=== PATIENT | female | born 1960 | race Hispanic/Latino ===

== ENCOUNTER 2018-04-04 07:27 | Day surgery (SDC) | payer MEDICARE ==
[2018-04-03 14:10] VITALS: BP 116/70
[2018-04-03 14:34] LABS: BASOPHILS % (AUTO) 0.5 % (0.0-5.0); EOSINOPHILS % (AUTO) 1.6 % (0.0-8.0); HEMATOCRIT 37.1 % (36-48); LYMPHOCYTES % (AUTO) 25.7 % (21.0-51.0); MEAN CORPUSCULAR HEMOGLOBIN 27.2 pg (27.0-33.0); MEAN CORPUSCULAR HGB CONC 32.2 g/dL (32.0-36.0); MEAN CORPUSCULAR VOLUME 84.5 fL (79-99); MONOCYTES % (AUTO) 7.3 % (3.0-13.0); NEUTROPHILS % (AUTO) 64.9 % (40.0-77.0); PLATELET COUNT (AUTO) 268 K/uL (130-400); RED BLOOD CELL COUNT(AUTO) 4.39 MIL/uL (4.00-5.50); RED CELL DISTRIBUTION WIDTH 15.8 % (11.0-15.5); WHITE BLOOD COUNT (AUTO) 10.8 K/uL (4.8-10.8)
[2018-04-03 14:37] LABS: CREATININE 0.9 mg/dL (0.5-1.5); POTASSIUM 3.9 mmol/L (3.5-5.1)
[~2018-04-04] VITALS: Ht 149.9 cm; Wt 88.1 kg
[2018-04-04] VITALS (19 sets, daily range): BP systolic 119–159; BP diastolic 59–89
[~2018-04-04 07:27] MED LIST: AMLO10TA6 PO; ASPI-555 PO; CALC-190 PO; CITA10TA7 PO; CYCL30DR OU; EXEN2VIA SQ; EZET10TA26 PO; FURO20TA4 PO; GABA-529 PO; HYDR-4068 PO; HYDR200T82 PO; LIDOCAINE TP; LOSA100T20 PO; MAGN400T40 PO; NAPR-1023 PO; OMEP40CA37 PO; SPIR50TA5 PO; ZONI25CA3 PO
[2018-04-04] MEDS ORDERED: EPINEPHRINE 1 MG/ML 30ML VIAL IJ ONE (07:53)
[2018-04-04] MEDS ORDERED: SODIUM CHLORIDE 0.9% 1000ML 1,000 ML IV ONE (09:24)
[2018-04-04] MEDS ORDERED: CLINDAMYCIN 900 MG/D5% WATER 50 ML IV ONE (09:24)
[2018-04-04] MEDS ORDERED: SUCCINYLCHOLINE CHLORIDE 20 MG/ML 10 ML VIAL ONE (09:44)
[2018-04-04] MEDS ORDERED: LIDOCAINE PF 2% 5ML ABBOJECT ONE (09:44)
[2018-04-04] MEDS ORDERED: PROPOFOL 10 MG/ML 20ML VIAL IV ONE (09:45)
[2018-04-04] MEDS ORDERED: ROCURONIUM 10MG/1ML SYR 10 MG/ML ML ONE ×2 (09:45→11:02)
[2018-04-04] MEDS ORDERED: ROPIVACAINE 0.5% 5MG/ML 30ML IJ ONE (09:47)
[2018-04-04] MEDS ORDERED: FENTANYL CITRATE PF 50 MCG/1 ML 2ML VIAL ONE (10:12)
[2018-04-04] MEDS ORDERED: PHENYLEPHRINE HCL 10 MG/ML 1ML VIAL IV ONE (10:59)
[2018-04-04] MEDS ORDERED: NEOSTIGMINE 5MG/5ML SYR IV ONE (11:59)
[2018-04-04] MEDS ORDERED: GLYCOPYRROLATE 1 MG/5 ML SYRINGE ONE (11:59)
[2018-04-04] MEDS ORDERED: HYDR-4453 PO (12:29)
[2018-04-04] MEDS ORDERED: CLIN300C3 PO (12:29)
[2018-04-04] MEDS ORDERED: ONDANSETRON HCL 4 MG/2 ML VIAL ONE ×2 (12:39→13:01)
[2018-04-04] MEDS ORDERED: METOCLOPRAMIDE 10 MG/2 ML VIAL ONE (14:12)
== END 2018-04-04 14:55 | disposition home or self-care (01) ==
LOC: DAH 07:27
PROVIDERS: ATTEND Orthopaedic Surgery
DX: S46.011A Strain of muscle(s) and tendon(s) of the rotator cuff of right shoulder, initial encounter (principal); M19.011 Primary osteoarthritis, right shoulder; M75.41 Impingement syndrome of right shoulder; M06.9 Rheumatoid arthritis, unspecified; I10 Essential (primary) hypertension; E78.5 Hyperlipidemia, unspecified; E11.9 Type 2 diabetes mellitus without complications; K21.9 Gastro-esophageal reflux disease without esophagitis; I27.20 Pulmonary hypertension, unspecified; Z90.49 Acquired absence of other specified parts of digestive tract; Z90.710 Acquired absence of both cervix and uterus; Z98.890 Other specified postprocedural states; Z82.49 Family history of ischemic heart disease and other diseases of the circulatory system; Z87.891 Personal history of nicotine dependence; X58.XXXA Exposure to other specified factors, initial encounter; Y93.89 Activity, other specified; Y92.89 Other specified places as the place of occurrence of the external cause; Y99.8 Other external cause status; Z79.899 Other long term (current) drug therapy; Z88.8 Allergy status to other drugs, medicaments and biological substances; Z88.0 Allergy status to penicillin
CPT/HCPCS: 29824; 29826; 29827; 36415; 80048; 82948 ×2; 85025; A4649 ×5; A4930 ×2; A6204; C1713; G0168; J0171; J0330; J2001; J2370; J2405 ×2; J2704; J2710; J2765; J2795; J3010; J3490 ×2; J7030 ×2

== ENCOUNTER 2018-09-28 13:27 | Emergency (ER) | payer MEDICARE ==
[~2018-09-28 13:27] MED LIST changes: -AMLO10TA6 PO; +AMLO10TA7 PO; +CLIN300C3 PO; +HYDR-4453 PO; -LOSA100T20 PO; +LOSA100T58 PO
[2018-09-28 14:37] LABS: APPEARANCE,URINE Clear (CLEAR); BILIRUBIN,URINE Negative (NEGATIVE); COLOR,URINE Yellow (YELLOW); GLUCOSE, URINE (UA) Negative (NEGATIVE); KETONES,URINE Negative (NEGATIVE); LEUKOCYTE ESTERASE ,URINE Negative (NEGATIVE); NITRATE,URINE Negative (NEGATIVE); OCCULT BLOOD,URINE Negative (NEGATIVE); PH,URINE 6.5 (5.0-8.0); PROTEIN,URINE Negative (NEGATIVE); UROBILINOGEN,URINE 0.2 mg/dL (0.2-1.0)
[2018-09-28] MEDS ORDERED: CYCLOBENZAPRINE HCL 10 MG TABLET ONE (15:34)
[2018-09-28] MEDS ORDERED: TRAMADOL HCL 50 MG TABLET ONE (15:34)
== END 2018-09-28 15:44 | disposition home or self-care (01) ==
LOC: EDH 13:27
DX: M54.5 Low back pain (principal); M54.6 Pain in thoracic spine; R11.0 Nausea; I10 Essential (primary) hypertension; E78.5 Hyperlipidemia, unspecified; M81.0 Age-related osteoporosis without current pathological fracture; M19.90 Unspecified osteoarthritis, unspecified site; E11.9 Type 2 diabetes mellitus without complications; F32.9 Major depressive disorder, single episode, unspecified; Z88.0 Allergy status to penicillin; Z88.8 Allergy status to other drugs, medicaments and biological substances; Z79.84 Long term (current) use of oral hypoglycemic drugs; Z72.0 Tobacco use
CPT/HCPCS: 74176; 81003

== ENCOUNTER → 2019-03-26 | Outpatient (CLI) | payer MEDICARE ==
[~2019-03-26] MED LIST changes: -EZET10TA26 PO; +EZET10TA48 PO
== END | disposition home or self-care (01) ==
LOC: RAH 12:54
PROVIDERS: ATTEND Family Medicine
DX: Z12.31 Encounter for screening mammogram for malignant neoplasm of breast (principal)
CPT/HCPCS: 77067

== ENCOUNTER → 2020-07-27 | Outpatient (CLI) | payer MEDICARE ==
[~2020-07-27] MED LIST changes: +AMLO-258 PO; -AMLO10TA7 PO; -ASPI-555 PO; +ASPI-556 PO; +OMEP40CA13 PO; -OMEP40CA37 PO; +ZONI25CA14 PO; -ZONI25CA3 PO
== END | disposition home or self-care (01) ==
LOC: OIH 12:09
PROVIDERS: ATTEND Family Medicine
DX: M43.22 Fusion of spine, cervical region (principal); M54.2 Cervicalgia; M25.512 Pain in left shoulder; M47.812 Spondylosis without myelopathy or radiculopathy, cervical region; R91.8 Other nonspecific abnormal finding of lung field; M19.012 Primary osteoarthritis, left shoulder
CPT/HCPCS: 72040; 73030

== ENCOUNTER 2021-07-02 09:51 | Emergency (ER) | payer MEDICARE ==
[~2021-07-02] VITALS: Ht 149.9 cm; Wt 96.6 kg
[~2021-07-02 09:51] MED LIST changes: -CITA10TA7 PO; +CITA10TA89 PO; -OMEP40CA13 PO; +OMEP40CA21 PO
[2021-07-02 10:03] VITALS: BP 158/80
[2021-07-02 10:28] LABS: HEMATOCRIT 36.4 % (36-48); MEAN CORPUSCULAR HEMOGLOBIN 27.8 pg (27.0-33.0); MEAN CORPUSCULAR HGB CONC 31.9 g/dL (32.0-36.0); MEAN CORPUSCULAR VOLUME 87.1 fL (79-99); MONOCYTES % (AUTO) 10.2 % (3.0-13.0); NEUTROPHILS % (AUTO) 50.1 % (40.0-77.0); PLATELET COUNT (AUTO) 247 K/uL (130-400); RED BLOOD CELL COUNT(AUTO) 4.18 MIL/uL (4.00-5.50); RED CELL DISTRIBUTION WIDTH 16.4 % (11.0-15.5)
[2021-07-02] MEDS ORDERED: LIDOCAINE HCL 2% VISCOUS 15 ML UDCUP PO ONE (10:30)
[2021-07-02] MEDS ORDERED: MAG/ALUM/SIMETH 30 ML UDCUP PO ONE (10:30)
[2021-07-02 10:35] LABS: POTASSIUM 3.6 mmol/L (3.5-5.1)
[2021-07-02 10:40] LABS: ALBUMIN 3.4 g/dL (3.5-5.0); BILIRUBIN,TOTAL 0.2 mg/dL (0.2-1.0); TOTAL PROTEIN, SERUM 6.5 g/dL (6.0-8.3)
[2021-07-02 10:43] LABS: B-TYPE NATRIURETIC PEPTIDE 27 pg/mL (0-100)
[2021-07-02] MEDS ORDERED: BENZ-39 PO (11:26)
[2021-07-02] MEDS ORDERED: PRED20TA3 PO (11:26)
== END 2021-07-02 11:40 | disposition home or self-care (01) ==
LOC: EDH 09:51
DX: J10.1 Influenza due to other identified influenza virus with other respiratory manifestations (principal); Z20.822 Contact with and (suspected) exposure to COVID-19; E11.9 Type 2 diabetes mellitus without complications; E78.00 Pure hypercholesterolemia, unspecified; E78.5 Hyperlipidemia, unspecified; F32.A Depression, unspecified; I10 Essential (primary) hypertension; M81.0 Age-related osteoporosis without current pathological fracture; Z88.0 Allergy status to penicillin; Z79.899 Other long term (current) drug therapy; Z79.82 Long term (current) use of aspirin; Z79.52 Long term (current) use of systemic steroids; Z79.1 Long term (current) use of non-steroidal anti-inflammatories (NSAID)
CPT/HCPCS: 36415; 71045; 80053; 83880; 85025; 87635; 87804 ×2; 87880; 93005; 99285; C9803

== ENCOUNTER 2022-02-22 08:13 | Day surgery (SDC) | payer MEDICARE ==
[~2022-02-22] VITALS: Ht 149.9 cm; Wt 94.8 kg
[~2022-02-22 08:13] MED LIST changes: -AMLO-258 PO; +BACL20TA PO; -CALC-190 PO; +CARV12.511 PO; -CITA10TA89 PO; -CLIN300C3 PO; -CYCL30DR OU; +DICY20TA3 PO; +DULO60CA64 PO; +ERGO500093 PO; +ESOM40CA PO; -EZET10TA48 PO; +FAMO40TA7 PO; -GABA-529 PO; +GALC120S SQ; +HYDR-4154 PO; -HYDR-4453 PO; -HYDR200T82 PO; -LIDOCAINE TP; +LORA-192 PO; -MAGN400T40 PO; +MONT-39 PO; -OMEP40CA21 PO; +ROSU5TAB12 PO; -SPIR50TA5 PO; +UBRO50TA PO; -ZONI25CA14 PO
[2022-02-22 08:15] VITALS: BP 133/72
[2022-02-22] MEDS: 0.9%NACL 1000ML 1,000 ML IV ONE ×2 (08:30→08:56)
[2022-02-22] MEDS ORDERED: PROPOFOL 10 MG/ML 20ML VIAL IV ONE (10:04)
[2022-02-22] MEDS ORDERED: LIDOCAINE PF 100MG/5ML (2%) SYRINGE 5ML ONE (10:04)
[2022-02-22 11:10] VITALS: BP 113/67
[2022-02-22 11:15] VITALS: BP 108/67
[2022-02-22 11:20] VITALS: BP 118/76
[2022-02-22 11:25] VITALS: BP 113/80
[2022-02-22 11:30] VITALS: BP 114/69
== END 2022-02-22 11:45 | disposition home or self-care (01) ==
LOC: DAH 08:13
PROVIDERS: ATTEND Surgery
DX: K21.9 Gastro-esophageal reflux disease without esophagitis (principal); K29.50 Unspecified chronic gastritis without bleeding; K22.89 Other specified disease of esophagus; I10 Essential (primary) hypertension; E11.43 Type 2 diabetes mellitus with diabetic autonomic (poly)neuropathy; K31.84 Gastroparesis; F32.A Depression, unspecified; M81.0 Age-related osteoporosis without current pathological fracture; E78.5 Hyperlipidemia, unspecified; G43.909 Migraine, unspecified, not intractable, without status migrainosus; M19.90 Unspecified osteoarthritis, unspecified site; E66.9 Obesity, unspecified; F41.9 Anxiety disorder, unspecified; I51.0 Cardiac septal defect, acquired; Z90.49 Acquired absence of other specified parts of digestive tract; Z90.710 Acquired absence of both cervix and uterus; Z98.890 Other specified postprocedural states; Z86.16 Personal history of COVID-19; Z68.42 Body mass index [BMI] 45.0-49.9, adult
CPT/HCPCS: 87426; 43239; 82948; 88305; 88342; J7030; J2001; J2704; A4620; A4215; A4223; A4222; A4221; A4663; A4606; 43235

== ENCOUNTER → 2022-03-07 | Outpatient (CLI) | payer MEDICARE | END | disposition home or self-care (01) | LOC: SHCH 13:08 | PROVIDERS: ATTEND Internal Medicine Cardiovascular Disease | DX: I10 Essential (primary) hypertension (principal) | CPT/HCPCS: 93925 ==

== ENCOUNTER 2022-07-08 11:46 | Emergency (ER) | payer MEDICARE ==
[~2022-07-08] VITALS: Ht 149.9 cm; Wt 93.4 kg
[2022-07-08 11:53] VITALS: BP 102/68
[2022-07-08 12:13] LABS: BASOPHILS % (AUTO) 0.6 % (0.0-5.0); EOSINOPHILS % (AUTO) 3.8 % (0.0-8.0); HEMATOCRIT 34.9 % (36-48); LYMPHOCYTES % (AUTO) 26.8 % (21.0-51.0); MEAN CORPUSCULAR HEMOGLOBIN 27.1 pg (27.0-33.0); MEAN CORPUSCULAR HGB CONC 30.9 g/dL (32.0-36.0); MEAN CORPUSCULAR VOLUME 87.7 fL (79-99); MONOCYTES % (AUTO) 8.5 % (3.0-13.0); NEUTROPHILS % (AUTO) 59.4 % (40.0-77.0); PLATELET COUNT (AUTO) 279 K/uL (130-400); RED BLOOD CELL COUNT(AUTO) 3.98 MIL/uL (4.00-5.50); RED CELL DISTRIBUTION WIDTH 13.9 % (11.0-15.5); WHITE BLOOD COUNT (AUTO) 12.4 K/uL (4.8-10.8)
[2022-07-08 12:23] LABS: APPEARANCE,URINE CLEAR (CLEAR); BILIRUBIN,URINE NEGATIVE (NEGATIVE); COLOR,URINE LIGHT-YELLOW (YELLOW); GLUCOSE, URINE (UA) NEGATIVE (NEGATIVE); KETONES,URINE NEGATIVE (NEGATIVE); LEUKOCYTE ESTERASE ,URINE NEGATIVE Leu/uL (NEGATIVE); NITRATE,URINE NEGATIVE (NEGATIVE); OCCULT BLOOD,URINE NEGATIVE (NEGATIVE); PH,URINE 7.5 (5.0-8.0); PROTEIN,URINE NEGATIVE (NEGATIVE); UROBILINOGEN,URINE 0.2 mg/dL (0.2-1.0)
[2022-07-08 12:27] LABS: CREATININE 0.9 mg/dL (0.5-1.5); POTASSIUM 3.9 mmol/L (3.5-5.1)
[2022-07-08 12:32] LABS: ALBUMIN 3.1 g/dL (3.5-5.0); TOTAL PROTEIN, SERUM 7.2 g/dL (6.0-8.3)
[2022-07-08] MEDS ORDERED: AZITHROMYCIN 250 MG TABLET PO ONE (14:30)
[2022-07-08] MEDS ORDERED: AZIT1PAC7 PO (14:35)
[2022-07-08] MEDS ORDERED: FEXO180T94 PO (14:35)
== END 2022-07-08 15:06 | disposition home or self-care (01) ==
LOC: EDH 11:46
DX: J01.00 Acute maxillary sinusitis, unspecified (principal); M19.90 Unspecified osteoarthritis, unspecified site; E11.9 Type 2 diabetes mellitus without complications; E78.00 Pure hypercholesterolemia, unspecified; I10 Essential (primary) hypertension; Z79.1 Long term (current) use of non-steroidal anti-inflammatories (NSAID); Z79.82 Long term (current) use of aspirin; Z20.822 Contact with and (suspected) exposure to COVID-19; Z79.899 Other long term (current) drug therapy; Z88.0 Allergy status to penicillin; Z90.49 Acquired absence of other specified parts of digestive tract
CPT/HCPCS: 99284; 71045; 87635; 80053; 85025; 87804 ×2; 81003; 36415; C9803

== ENCOUNTER → 2023-08-02 | Outpatient (CLI) | payer MEDICARE ==
[~2023-08-02] MED LIST changes: +AZIT1PAC7 PO; +FEXO180T94 PO; -HYDR-4154 PO; +HYDR50TA37 PO; -LOSA100T58 PO; +LOSA100T59 PO
== END | disposition home or self-care (01) ==
LOC: RAH 13:54
PROVIDERS: ATTEND Family Medicine
DX: Z12.31 Encounter for screening mammogram for malignant neoplasm of breast (principal)
CPT/HCPCS: 77067

== ENCOUNTER → 2023-11-12 | Outpatient (CLI) | payer MEDICARE ==
[~2023-11-12] MED LIST changes: +IOHEXOL 350 MG/ML 100ML INFUS..BTL IV ONE
== END | disposition home or self-care (01) ==
LOC: RAH 10-08 07:00
PROVIDERS: ATTEND Family Medicine
DX: R10.31 Right lower quadrant pain (principal); R10.11 Right upper quadrant pain; M47.815 Spondylosis without myelopathy or radiculopathy, thoracolumbar region
CPT/HCPCS: 74178; Q9967